=== PATIENT | female | born 1990 | race Caucasian/White ===

== ENCOUNTER 2022-07-09 19:06 | Emergency (ER) | payer OTHER, SELFPAY ==
[2022-07-09] VITALS (11 sets, daily range): BP systolic 106–123; BP diastolic 61–88; PULSE 78–100; RESP 16–18; TEMP 36.4; O2SAT 96–100
[2022-07-09 19:24] LABS: Basophils Absolute Auto 0.1 K/mm3 (0.0-0.1); Basophils Percent Auto 0.4 % (0.2-1.2); Eosinophils Absolute Auto 0.1 K/mm3 (0-0.3); Eosinophils Percent Auto 0.4 % (0-4.4); Hematocrit 40.8 % (37.0-47.0); Hemoglobin 13.7 g/dL (12.0-15.0); Immature Granulocyte Absolute 0.03 K/mm3 (0.00-0.031); Immature Granulocyte Percent A 0.2 % (0-0.5); Lymphocytes Absolute Auto 2.46 K/mm3 (0.9-3.2); Lymphocytes Percent Auto 18.6 % (18.3-44.2); Mean Corpuscular HGB Conc 33.6 g/dl (32-36); Mean Corpuscular Hemoglobin 30.4 pg (26-34); Mean Corpuscular Volume 90.7 fl (80-100); Monocytes Absolute Auto 0.7 K/mm3 (0.1-0.6); Monocytes Percent Auto 5.5 % (2.6-8.5); Neutrophils Absolute Auto 9.9 K/mm3 (1.3-6.7); Neutrophils Percent Auto 74.9 % (45.5-73.1); Platelet Count Result 226 k/mm3 (150-375); Red Cell Distribution Width 12.1 % (11.5-14.5); White Blood Count 13.2 K/mm3 (4.5-10.0)
[2022-07-09 19:37] LABS: Alanine Aminotransferase 24 U/L (6-35); Albumin Level 4.8 g/dL (3.5-5.1); Alkaline Phosphatase 84 U/L (38-126); Anion Gap 14 mmol/L (8-16); Aspartate Amino Transferase 26 U/L (14-36); Bilirubin,Total 1.3 mg/dL (0.2-1.3); Blood Urea Nitrogen 8 mg/dL (7-17); Calcium 9.5 mg/dL (8.4-10.2); Carbon Dioxide 24 mmol/L (22-30); Chloride 101 mmol/L (98-107); Estimated CRCL calculation 87 ml/min; Estimated Glomerular Filt Rate > 60; Glucose 107 mg/dL (65-110); Lipase 45 U/L (23-300); Potassium 3.7 mmol/L (3.4-5.0); Sodium 139 mmol/L (137-145)
[2022-07-09] MEDS: diphenhydrAMINE HCl INJ 50 MG/ML VIAL 25 MG IV PUSH (20:18)
[2022-07-09 20:21] LABS: Appearance Urine Clear (Clear); Bilirubin Urine 1+ (Negative); Blood Urine Negative (Negative); Color Urine Yellow (Yellow); Glucose Urine UA Negative (Negative); Ketones Urine 4+ mg/dL (Negative); Leukocyte Esterase Ur Negative LEU/UL (Negative); Nitrate Urine Negative (Negative); Protein Urine Negative (Negative)
[2022-07-09] MEDS: SODIUM CHLORIDE 0.9% IV 1,000 ML 999 ML IV CONT ×2 (20:22→21:29)
[2022-07-09] MEDS: METOCLOPRAMIDE HCL INJ 10 MG/2 ML VIAL IV PUSH (20:22)
[2022-07-09 20:25] LABS: Add Urine Microscopic? YES; Mucus Urine Rare /lpf; RBC Urine 0-2 /hpf (0-2); Squamous Epithelial Cell Urine Occasional /hpf (Few)
[2022-07-09] MEDS: DICYCLOMINE HCL INJ 20 MG/2 ML VIAL IM (20:25)
[2022-07-09 20:28] LABS: Pregnancy On Board Control Positive; Urine Pregnancy Test Negative
--- NOTE | 2022-07-09 20:32 | PC.NURSE ---
bedside preg added on in lab
--- NOTE | 2022-07-09 20:44 | ED.ABDPAIN ---
HPI - Abdominal Pain General Chief Complaint: Abdominal Pain Stated Complaint: abdominal pain x 10 days Time Seen by Provider: 07/09/22 19:56 History of Present Illness HPI narrative: 32-year-old female presents the emergency room with recurrent abdominal pain. Patient states that she has been experiencing upper abdominal pain for 10 days, is associated with nausea and vomiting. Patient was seen at [facility] emergency room yesterday and was diagnosed with colitis following a CT scan. Patient was sent home with Zofran and azithromycin. Patient states that she is not experiencing any improvement in her symptoms. Denies fever, diarrhea or constipation. Related Data Allergies Allergy/AdvReac Type Severity Reaction Status Date / Time No Known Allergies Allergy Verified 07/09/22 20:13 Review of Systems Review of Systems: CONSTITUTIONAL: Denies fever, chills, or sweats. EYES: Denies visual changes, redness, or discharge. ENT: Denies rhinorrhea, congestion, sore throat, or otalgia. CARDIOVASCULAR: Denies chest pain, palpitations, or edema. RESPIRATORY: Denies cough or dyspnea. GASTROINTESTINAL: Reports abdominal pain, nausea, vomiting GENITOURINARY: Denies dysuria or hematuria. SKIN: Denies rash or itching. MUSCULOSKELETAL: Denies back pain, joint pain, or myalgia. NEUROLOGIC: Denies headache, numbness, dizziness, or weakness. PSYCHIATRIC: Denies anxiety or depression. Exam Narrative: GENERAL: ill-appearing, well-nourished, no physical limitations, and in distress. HEAD: Normocephalic, atraumatic. EYES: Conjunctivae normal, PERRLA and EOMI. ENT: External nose normal, Nares clear, no rhinorrhea or epistaxis. Mucous membranes dry. CHEST: Clear to auscultation. No respiratory distress. No wheezes rales or rhonchi. HEART: Regular rate and rhythm. No murmur heard. Normal peripheral pulses. ABDOMEN: Soft, upper abdominal tenderness, nondistended, normal active bowel sounds. BACK: No CVA tenderness EXTREMITIES: Normal range of motion. No edema. No clubbing or cyanosis SKIN: Warm, dry, no rash. No noted wounds NEURO: No focal deficits. Alert and oriented x3. MAEW. CN's II-XI intact bilaterally, normal gait PSYCH: Cooperative. Normal mood and affect. Course Vital Signs Vital signs: Vital Signs Temperature 36.4 C L 11/18/22 19:08 Pulse Rate 100 07/09/22 19:08 Respiratory Rate 16 07/09/22 19:08 Blood Pressure 123/88 07/09/22 19:08 Pulse Oximetry 100 07/09/22 19:08 Oxygen Delivery Room Air 07/09/22 19:08 Temperature 36.4 C L 07/09/22 19:08 Pulse Rate 100 07/09/22 19:08 Respiratory Rate 16 07/09/22 19:08 Blood Pressure 123/88 07/09/22 19:08 Pulse Oximetry 100 07/09/22 19:08 Oxygen Delivery Room Air 07/09/22 19:08 MDM - Abdominal Pain Lab Data Result diagrams: 07/09/22 19:19 07/09/22 19:19 Labs: Lab Results 07/09/22 07/09/22 07/09/22 Range/Units 19:19 19:19 20:12 WBC 13.2 H (4.5-10.0) K/mm3 RBC 4.50 (4.2-5.4) M/mm3 Hgb 13.7 (12.0-15.0) g/dL Hct 40.8 (37.0-47.0) % MCV 90.7 (80-100) fl MCH 30.4 (26-34) pg MCHC 33.6 (32-36) g/dl RDW 12.1 (11.5-14.5) % Plt Count 226 (150-375) k/mm3 MPV 11.0 H (7.4-10.4) fl Immature Gran % (Auto) 0.2 (0-0.5) % Neut % (Auto) 74.9 H (45.5-73.1) % Lymph % (Auto) 18.6 (18.3-44.2) % [place] % (Auto) 5.5 (2.6-8.5) % Eos % (Auto) 0.4 (0-4.4) % Baso % (Auto) 0.4 (0.2-1.2) % Lymph # (Auto) 2.46 (0.9-3.2) K/mm3 [place] # (Auto) 0.7 H (0.1-0.6) K/mm3 Eos # (Auto) 0.1 (0-0.3) K/mm3 Baso # (Auto) 0.1 (0.0-0.1) K/mm3 Abs Immat Gran (auto) 0.03 (0.00-0.031) K/mm3 Absolute Neuts (auto) 9.9 H (1.3-6.7) K/mm3 Absolute Nucleated RBC 0.0 (0.0-0.012) K/mm3 Nucleated RBC % 0.0 (0.0-0.2) % Sodium 139 (137-145) mmol/L Potassium 3.7 (3.4-5.0) mmol/L Chloride 101 (98-107) mmol/L Carbon Dioxide 24 (22-30
[2022-07-09] MEDS: ONDANSETRON INJ 4 MG/2 ML VIAL 8 MG IV PUSH (21:29)
[2022-07-09] MEDS: MORPHINE SULFATE (*CRX) 2 MG/ML INJ IV PUSH (21:29)
[2022-07-09] MEDS: SULFAMETHOXAZOLE/TRIMETHOPRIM 800/160 MG DS TABLET 1 TAB PO (22:38)
== END 2022-07-09 22:41 | disposition home or self-care (01) ==
PROVIDERS: Emergency Medicine; Emergency Provider Nurse Practitioner Family
DX: K52.9 Noninfective gastroenteritis and colitis, unspecified (principal)
CPT/HCPCS: 36415; 80053; 81001; 81025; 83690; 85025; 96361; 96372; 96374; 96375; 99284; A9270; J0500; J1200; J2270; J2405; J2765; J7030